=== PATIENT | female | born 1950 | race Two or more races ===

== ENCOUNTER → 2017-08-29 | Outpatient (CLI) | payer OTHER ==
[~2017-08-29] MED LIST: DIOVAN HCT 161 UDTAB PO; GARAMYCIN IV; HYDROCHLOROTHIAZIDE PO; HumaLOG 100 UNIT/1 M SUBCUTANEO; IRBESARTAN PO; JARDIANCE10 MG PO; LEVAQUIN750 MG PO; NEURONTIN300 MG PO; NORVASC5 MG PO; PERCOCET 2.5/321 TAB PO; ROCEPHIN IM; SEPTRA 80/400 T1 TAB PO; TOPROL XL50 M1 PO; TRAMADOL HCL50 MG PO; ULTRACET PO
== END | disposition home or self-care (01) ==
LOC: LAB 08:51
DX: N39.0 Urinary tract infection, site not specified (principal); D53.9 Nutritional anemia, unspecified; I11.0 Hypertensive heart disease with heart failure; E78.2 Mixed hyperlipidemia; D55.9 Anemia due to enzyme disorder, unspecified; K76.1 Chronic passive congestion of liver; C90.00 Multiple myeloma not having achieved remission; E04.0 Nontoxic diffuse goiter

== ENCOUNTER → 2017-09-30 | Outpatient (CLI) | payer OTHER | END | disposition home or self-care (01) | LOC: NUCLEAR 07:00 | DX: I25.10 Atherosclerotic heart disease of native coronary artery without angina pectoris (principal) | CPT/HCPCS: J0153; A9500; 93017; 78452 ==

== ENCOUNTER 2018-09-04 23:35 | Emergency (ER) | payer OTHER ==
[~2018-09-04] VITALS: Ht 160 cm; Wt 75.7 kg
[2018-09-05] MEDS ORDERED: LEVOFLOXACIN250 MG PO (03:53)
== END 2018-09-05 03:48 | disposition home or self-care (01) ==
LOC: ER 23:35
DX: E11.649 Type 2 diabetes mellitus with hypoglycemia without coma (principal); N39.0 Urinary tract infection, site not specified; B96.29 Other Escherichia coli [E. coli] as the cause of diseases classified elsewhere

== ENCOUNTER → 2018-10-03 | Outpatient (CLI) | payer OTHER ==
[~2018-10-03] MED LIST changes: +LEVOFLOXACIN250 MG PO
== END | disposition home or self-care (01) ==
LOC: NUCLEAR 10:00
DX: N19 Unspecified kidney failure (principal); N13.9 Obstructive and reflux uropathy, unspecified
CPT/HCPCS: 78708; A9539; J1940

== ENCOUNTER → 2018-10-06 | Outpatient (CLI) | payer OTHER | END | disposition home or self-care (01) | LOC: SONOGRAMA 10:09 → MAMO-SONO 10:15 | DX: R10.84 Generalized abdominal pain (principal); N18.3 Chronic kidney disease, stage 3 (moderate); R31.9 Hematuria, unspecified ==

== ENCOUNTER 2020-05-24 08:26 | Outpatient (CLI) | payer OTHER | END 2020-05-24 12:00 | disposition home or self-care (01) | LOC: PPH VACUNA 08:26 | PROVIDERS: ATTEND Emergency Medicine Pediatric Emergency Medicine | DX: Z23 Encounter for immunization (principal) ==

== ENCOUNTER → 2020-11-24 12:29 | Outpatient (CLI) | payer OTHER | END | disposition home or self-care (01) | LOC: RAD 12:29 → LAB 12:29 | PROVIDERS: ATTEND Ophthalmology | DX: D68.8 Other specified coagulation defects (principal); H25.011 Cortical age-related cataract, right eye; Z98.41 Cataract extraction status, right eye ==

== ENCOUNTER 2021-02-05 08:00 | Outpatient (CLI) | payer OTHER | END 2021-02-05 08:30 | disposition home or self-care (01) | LOC: PPH VACUNA 08:00 | PROVIDERS: ATTEND Emergency Medicine Pediatric Emergency Medicine | DX: Z23 Encounter for immunization (principal) ==